=== PATIENT | female | born 1990 | race Caucasian/White ===

== ENCOUNTER 2025-05-18 12:48 | Emergency (ER) | payer BC, SELFPAY ==
--- OUTSIDE RECORDS SUMMARY | 2020-07-30 08:46 | XMS_ITS | Continuity of Care Document ---
Author Organization 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 Name Role Phone MD MEGAN Meyers, Nery Unavailable Unavaila ble Allergies, Adverse Reactions, Alerts Substance Reaction Status Criticality No Known Allergies Active No Inform ation Medications Medication Instructions Dosage Effective Dates (start - stop) Status Comments escitalopram 20 mg tablet take 1 tablet by oral route every day 20 MG - Active Flonase Allergy Relief 50 mcg/actuation nasal spray,suspension spray 1 - 2 spray by intranasal route every day in each nostril - Active Zyrtec 10 mg capsule 1 tab po daily - Active hydrocortisone 2.5 % topical cream apply by topical route 2 times every day a thin layer to the affected area(s) 0.00 - Active sumatriptan 25 mg tablet take 1 tablet by oral route after onset of migraine; may repeat after 2 hours if headache returns,not to exceed 200mg in 24hrs 25 MG - Active naproxen 500 mg tablet take 1 tablet by oral route 2 times every day with food as needed 500 MG - Active Flonase Allergy Relief 50 mcg/actuation nasal spray,suspension spray 1 - 2 spray by intranasal route every day in each nostril - No Longer Active Zyrtec 10 mg capsule 1 tab po daily - No Longer Active escitalopram 20 mg tablet take 1 tablet by oral route every day 20 MG - No Longer Active Procedures Procedure Date OV 25 MIN F OV 25 MIN F OV 25 MIN F OV 25 MIN F BLOOD COLLECTIO EKG OV 25 MIN F OV 25 MIN F OV 25 MIN F OV 25 MIN F SYST BP LT 130 MM HG DIAST BP 80-89 MM HG PREV VISIT, NEW, AGE 18-39 BLOOD COLLECTIO Advance Directives Directive Yes / No Effective Date File Name No Information Encounters Encounter Description Practice Location Reason(s) For Visit Diagnoses Date Provider Providers Copied on Encounter [facility], [address], [place], [place], [id number], [place] tel:[phone] [place] No Information 1 MD Nery Meyers. [address] [facility], [address], [address], [place]. [phone] OV 25 MIN F [facility], [address], [place], [place], [id number], [place] tel:[phone] [place] Follow Up of Anxiety (chief complaint) Anxiety and depressionDizzine ss and giddiness 1 MD Nery Meyers. [address] [facility], [address], [address], [place]. tel:[phone] OV 25 MIN F [facility], [address], [place], [place], [id number], [place] tel:[phone] [place] Follow Up of Anxiety (chief complaint) Anxiety and depressionDizzine ss and giddinessInsomnia due to mental condition 0 MD Nery Meyers. [address] [facility], [address], [place], [address], [place]. tel:[phone] OV 25 MIN F [facility], [address], [place], [place], [id number], [place] tel:[phone] [place] Follow Up of headache (chief complaint)F ollow Up of lab results (chief complaint) Anxiety and depressionHeadach e disorderInsomnia due to mental conditionMultiple allergies Mar- 0 MD Nery Meyers. [address] [facility], [address], [address], [place]. tel:[phone] OV 25 MIN F [facility], [address], [id number], [place] tel:[phone] [place] Allergies (chief complaint) Dizziness and giddinessHeadache disorderMultiple allergiesAllergic rhinitis, unspecified seasonality, unspecified trigger 0 MD Nery Meyers. [address] [facility], [address], [address], [place]. tel:[phone] OV 25 MIN F [facility], [address] [place], [id number], [place] tel:[phone] [place] Follow Up of Anxiety (chief complaint)F ollow Up of Lab results (chief complaint) Anxiety and depressionDizzine ss and giddinessHeadache disorderInsomnia due to mental condition 0 MD Nery Meyers. [address] [facility], [address], [address], [place]. tel:[phone] OV 25 MIN F [facility], [address], [place], [place], [id number], [place] tel:[phone] [place] Follow Up of Anxiety (chief complaint)F ollow Up of lab results (chief complaint) HIV antibody positiveAnxiety and depressionInsomni a due to mental conditionHeadache disorderMixed hyperlipidemia Feb- 0 MD Nery Meyers. [address] [facility], [facility] [address], [place], [address], [place]. tel:[phone] OV 25 MIN F [facility], [address], [place], [place], [id number], [place] tel:[phone] [place] Follow Up of Headache (chief complaint) Anxiety and depressionInsomni a due to mental conditionDizzines s and giddinessHeadache disorderIntractab le migraine without status migrainosus, unspecified migraine type 0 MD Nery Meyers. [address] [facility], [address], [place], [address], [place]. tel:[phone] OV 25 MIN F [facility], [address], [place], [place], [id number], [place] tel:[phone] [place] headache (chief complaint) Anxiety and depressionInsomni a due to mental conditionIntracta ble migraine without status migrainosus, unspecified migraine type 0 MD Nery Meyers. [address] [facility], [address], [place], [address], [place]. tel:[phone] PREV VISIT, NEW, AGE 18-39 [facility], [address], [place], [place], [id number], [place] tel:[phone] [place] Preventive exam (chief complaint)H eadache (chief complaint) Encntr for general adult medical exam w/o abnormal findingsEncounter for blood pressure examinationAnxiet y and depressionMajor depressive disorder, single episode, unspecifiedInsomn ia due to mental conditionBreast tenderness in femaleFamily history of breast cancer in mother 0 MD Nery Meyers. [address] [facility], [address], [place], [address], [place]. tel:[phone] Family History Family Member Type Diagnosis Age At Onset No Information Payers Payer name Insurance type Covered alliance party ID Authoriza tion(s) [employer] [place] [employer] [id number] Medi Mirza Wrap Payer [id number] Social History Type Description Quantity Date Captured Comments Sex Female Smoking Status No Information Sexual Orientation Don't Know Gender Identity Female Chief Complaint And Reason For Visit No Information Reason For Referral Reason For Referral No Information Plan Of Treatment Date Type Action Status Referral Ordered: referred to Psychiatry anxiety and depression ordered Referral Ordered: Ultrasound, breast, complete Bilateral ordered History Of Present Illness Encounter Date Complaint History Of Prese nt Illness Follow Up of Anxiety This is a f ollow up visit. There is improvement of initial symptoms. The patient presents with anxious/fearful thoughts, compulsive thoughts, depressed mood, difficulty concentrating, easily startled, excessive worry and fatigue but denies decreased need for sleep, difficulty falling asleep or thoughts of or suicide. The patient's risk factors include family history of anxiety, financial worries and relationship problems. The Follow Up of Anxiety is aggravated by conflict or stress and social interactions. The patient's relieving factors are medication. The Follow Up of Anxiety is associated with headache, irritability, nausea, sweating and weight gain. The patient denies any chronic pain, trembling, urinary frequency and vomiting. Additional information: Due to COVID 19 pt is informed and agreed to have telehealth visit. Follow Up of Anxiety This is a f ollow up visit. There is improvement of initial symptoms. The patient reports functioning as somewhat difficult. The patient presents with anxious/fearful thoughts, compulsive thoughts, difficulty staying asleep, easily startled and fatigue but denies decreased need for sleep, depressed mood, difficulty concentrating, difficulty falling asleep, excessive worry, increased energy, hallucinations,decreased libido or thoughts of or suicide. The patient's risk factors include family history of depression, family history of anxiety, financial worries, medication, relationship problems and social isolation. The Follow Up of Anxiety is aggravated by conflict or stress and traumatic memories. The patient's relieving factors are medication (Lexapro 20 mg, Xanax 0.5 mg prn), sunlight and warm weather.The patient's symptoms are not relieved by cessation of menses. The Follow Up of Anxiety is associated with headache, irritability, nausea, sweating and trembling. The patient denies any chronic pain, urinary frequency, vomiting and weight gain. Additional information: Due to COVID 19 pt is informed and agreed to have telehealth visit. Follow Up of headache The severi ty of the problem is mild. The problem has not changed. The symptoms are intermittent. Locations affected include entire head. Headache timing includes no pattern. Symptoms are associated with stress. Denies relieving factors. Associated symptoms include dizziness. Pertinent negatives include fever, nausea, personality changes, phonophobia, photophobia, vision loss left, vision loss right, visual aura, vertigo and vomiting. Additional information: Due to COVID 19 pt is informed and agreed to have telehealth visit. Follow Up of lab results all nor mal including allergy tests and SARS; all results were discussed with pt in details. Allergies The patient pres ents with itchy eyes, itchy throat, skin rash and sneezing. Symptoms are intermittent, moderate and unchanged. The symptoms are felt to be related to exposure to dust, exposure to mold, fall season, flower exposure, pet / animal exposure, season change, spring season and summer season. The allergic symptoms are worsened by allergens, dry air, dust, food, heat, pets / animals, pollution / exhaust, season change and weather. Denies relieving factors. The patient is also experiencing coryza, cough, headache, nasal congestion, nasal drainage, post nasal drainage, reddened eyes, sneezing and tearing. The patient denies chest tightness, dizziness, ear pain, globus sensation, nausea, reflux, sinus infections, sinus pain and urticaria. Follow Up of Lab results Western blot test came back NEGATIVE; all results were discussed with pt in details. Follow Up of Anxiety This is a f ollow up visit. There is continuation of initial symptoms. The patient reports functioning as somewhat difficult. The patient presents with anxious/fearful thoughts, compulsive thoughts, decreased need for sleep, depressed mood, difficulty falling asleep, difficulty staying asleep, easily startled, excessive worry and fatigue but denies difficulty concentrating, hallucinations,decreased libido, increased libido, loss of appetite, paranoia, racing thoughts, restlessness or thoughts of or suicide. The patient's risk factors include family history of depression, relationship problems and social isolation. The patient's risk factors exclude history of suicidal attempts. The Follow Up of Anxiety is aggravated by conflict or stress and social interactions. Interventions the patient has tried have not provided any relief. The Follow Up of Anxiety is associated with headache, irritability, nausea, sweating and trembling. The patient denies any chronic pain, urinary frequency, vomiting and weight gain. Additional information: Due to COVID 19 pt is informed and agreed to have telemedicine visit. Follow Up of lab results abnorma l lipid panel with high non HDL cholesterol to 142, high cholesterol to 214, REACTIVE HIV AG/AB TEST 4TH GEN; the rest of results is normal; all results were discussed with pt in details. Follow Up of Anxiety This is a f ollow up visit. There is continuation of initial symptoms. The patient reports functioning as somewhat difficult. The patient presents with anxious/fearful thoughts, compulsive thoughts, difficulty staying asleep, easily startled, excessive worry and fatigue but denies decreased need for sleep, depressed mood, difficulty concentrating, difficulty falling asleep, diminished interest or pleasure, feelings of guilt, feelings of invulnerability or thoughts of or suicide. The patient's risk factors include family history of anxiety, relationship problems and social isolation. The patient's risk factors exclude history of suicidal attempts. The Follow Up of Anxiety is aggravated by conflict or stress and social interactions. The patient's relieving factors are medication. The Follow Up of Anxiety is associated with headache, irritability, sweating, trembling and urinary frequency. The patient denies any vomiting and weight gain. Additional information: Due to COVID 19 pt is informed and agreed to have telemedicine visit. Follow Up of Headache The severi ty of the problem is mild. The problem has not changed. Locations affected include right frontal. Symptoms are associated with menses and stress. Aggravating factors include allergies, anxiety, bright lights, exercise, head position and certain foods. Denies relieving factors. Associated symptoms include dizziness, phonophobia and vertigo. Pertinent negatives include blurred vision, diplopia, fever, hemianopsia left, hemianopsia right, loss of consciousness, personality changes, photophobia, neck stiffness, vision loss right, visual aura and vomiting. Additional information: Due to COVID 19 pt is informed and agreed to have telemedicine visit,. headache The severity of the problem is moderate. The problem has not changed. The symptoms are recurring. Locations affected include entire head. Headache timing includes no pattern. Symptoms are associated with stress. Symptoms are not associated with menses, recent head trauma and recent MVA. Aggravating factors include noise. Symptoms are not aggravated by bright lights, exercise, head position and certain foods. Associated symptoms include nausea and personality changes. Pertinent negatives include blurred vision, diplopia, dizziness, fever, hemianopsia left, loss of consciousness, memory impairment, neck stiffness, vision loss right, visual aura, vertigo and vomiting. Additional information: due to COVID 19 pt is informed and agreed to have telemedicine visit. Headache Onset: 2 Months. Pain scale: 3/10. Headache timing includes no pattern. Symptoms are associated with stress. Symptoms are not associated with recent head trauma. Aggravating factors include anxiety and noise. Symptoms are relieved by analgesics and darkness. Associated symptoms include dizziness and nausea. Pertinent negatives include blurred vision and fever. Preventive exam The patient stat es she uses oral contraceptive for control. Last LMP was 01/11/2020. Her menses is regular with normal flow with a frequency of <28 days. Negative for dysmenorrhea and menorrhagia. Negative for: breast discharge. Positive for: breast lump(s), breast pain and breast self exam. Menopausal symptoms negative for: hot flashes and vaginal dryness. Menopausal symptoms positive for: insomnia and night sweats. Associated symptoms include anxiety, depression, difficulty falling sleep, nocturia and sleep disturbances. Pertinent negatives include abnormal bleeding (hematology), abnormal vaginal bleeding, decreased libido, dyspareunia, history of infertility, sexual dysfunction, urinary incontinence, urinary urgency and vaginal discharge. She takes calcium supplements. She reports taking Vitamin D. She does take multivitamins. Folic acid is taken. The patient does not use tobacco. She has not been exposed to passive smoke. Additional information: Malia Paul. Functional Status Date Functional Assessmen t No Information Instructions Date Instruction Additional Infor kendra get regular physical activities, get enough sleep, eat healthy foods Related to Anxiety and depression avoid driving, sudde n movements and use cane if needed Related to Dizziness and giddiness discuss diet, low sa lt, caffeine, alcohol Related to Dizziness and giddiness continue to take med s as directed, appropriate hydration Related to Dizziness and giddiness go to ER if unstable Related to Anxiety and depression take meds as directed by psych R elated to Anxiety and depression get regular physical activities, get enough sleep, eat healthy foods Related to Anxiety and depression do not drink alcohol or use drug s Related to Anxiety and depression take meds as directed Related to Anxiety and depression go to ER if unstable Related to Anxiety and depression avoid driving, sudde n movements and use cane if needed Related to Dizziness and giddiness discuss diet, low sa lt, caffeine, alcohol Related to Dizziness and giddiness continue to take med s as directed, appropriate hydration Related to Dizziness and giddiness get regular physical activities, get enough sleep, eat healthy foods Related to Anxiety and depression take meds as directed Related to Multiple allergies take meds as directed by psych R elated to Anxiety and depression do not drink alcohol or use drug s Related to Anxiety and depression take meds as directed Related to Headache disorder avoid triggers if possible Relat ed to Multiple allergies Instructions given f or sinus irrigation. Related to Allergic rhinitis, unspecified seasonality, unspecified trigger Allergy testing information give n. Related to Allergic rhinitis, unspecified seasonality, unspecified trigger Patient instructed o n use of saline sprays. Related to Allergic rhinitis, unspecified seasonality, unspecified trigger lab tests Related to Multi ple allergies continue to take med s as directed, appropriate hydration Related to Dizziness and giddiness discuss diet, low sa lt, caffeine, alcohol Related to Dizziness and giddiness avoid driving, sudde n movements and use cane if needed Related to Dizziness and giddiness get regular physical activities, get enough sleep, eat healthy foods Related to Anxiety and depression go to ER if unstable Related to Anxiety and depression take meds as directed Related to Anxiety and depression do not drink alcohol or use drug s Related to Anxiety and depression avoid driving, sudde n movements and use cane if needed Related to Dizziness and giddiness discuss diet, low sa lt, caffeine, alcohol Related to Dizziness and giddiness continue to take med s as directed, appropriate hydration Related to Dizziness and giddiness avoid driving, sudde n movements and use cane if needed Related to Dizziness and giddiness discuss diet, low sa lt, caffeine, alcohol Related to Dizziness and giddiness continue to take med s as directed, appropriate hydration Related to Dizziness and giddiness Increase activity. Related to Mi xed hyperlipidemia discuss low fat diet Related to Mixed hyperlipidemia take meds as directed Related to Anxiety and depression go to ER if unstable Related to Anxiety and depression get regular physical activities, get enough sleep, eat healthy foods Related to Anxiety and depression do not drink alcohol or use drug s Related to Anxiety and depression discuss diet, hygien e, hydration, safety Related to Headache disorder take meds as directed Related to Headache disorder stop OCPs Related to Intra ctable migraine without status migrainosus, unspecified migraine type meds as directed Related to Intr actable migraine without status migrainosus, unspecified migraine type continue to take med s as directed, appropriate hydration Related to Dizziness and giddiness discuss diet, low sa lt, caffeine, alcohol Related to Dizziness and giddiness take meds as directed by psych R elated to Anxiety and depression go to ER if unstable Related to Anxiety and depression get regular physical activities, get enough sleep, eat healthy foods Related to Anxiety and depression do not drink alcohol or use drug s Related to Anxiety and depression avoid driving, sudde n movements and use cane if needed Related to Dizziness and giddiness go to ER if unstable Related to Anxiety and depression take meds as directed Related to Anxiety and depression get regular physical activities, get enough sleep, eat healthy foods Related to Anxiety and depression do not drink alcohol or use drug s Related to Anxiety and depression discuss diet, hydrat ion, exercises as tolerated Related to Intractable migraine without status migrainosus, unspecified migraine type take meds as directed Related to Intractable migraine without status migrainosus, unspecified migraine type Increase activity. Related to En cntr for general adult medical exam w/o abnormal findings Perform monthly self breast examinations. Related to Encntr for general adult medical exam w/o abnormal findings discuss diet, hygien e, hydration, safe sex, condoms Related to Encntr for general adult medical exam w/o abnormal findings take meds as directed by psych R elated to Anxiety and depression go to ER if unstable Related to Anxiety and depression get regular physical activities, get enough sleep, eat healthy foods Related to Anxiety and depression do not drink alcohol or use drug s Related to Anxiety and depression Assessments Type Assessment Date No Information Patient Care Teams Name Effective Dates (start - stop) Status Members No Information
[2025-05-18 12:50] VITALS: BP 124/72; PULSE 82; RESP 18; TEMP 36.6; O2SAT 98; BMI 21.2
--- NOTE | 2025-05-18 12:50 | ED.HA ---
HPI - Headache General Chief Complaint: Headache Stated Complaint: migraine Time Seen by Provider: 05/18/25 13:31 Source: patient Mode of arrival: ambulatory Limitations: no limitations History of Present Illness ED Provider: Sepideh Lima APRN HPI Narrative: 35-year-old female with a history of migraines who is currently taking Topamax presents to the ER with complaints of constant headache for the last 3 weeks described as pressure which wraps around her head. There was no associated nausea, vomiting, vision changes, neck pain, neck stiffness, fevers, chills. Patient reports she has had migraines for over 10 years. She is currently followed by a headache Center in [facility]. She has tried multiple medication modalities for migraines which have not been helpful. In the last 2 weeks she has been taking Motrin and Tylenol also with no change in the pain. She does have a follow-up appointment with her headache center in September of 2025. Headache is not worsened with position changes. Related Data Previous Rx's ?Medication ?Instructions ?Recorded lknahvbtcp-ychxjfxrsrwwf-jicagezj 1 cap PO Q4H PRN pain #20 caps 05/18/25 50 mg-300 mg-40 mg capsule (Fioricet) Allergies Allergy/AdvReac Type Severity Reaction Status Date / Time No Known Allergies (No Known Allergy Verified 05/18/25 12:53 Allergies*) Review of Systems Review of Systems: Yes all other systems are reviewed and are negative Constitutional: Constitutional: Reports no additional constitutional complaints, Denies body ache(s), Denies chills, Denies fever(s), Reports headache(s) and Denies weakness Eyes: Eyes: Reports no additional eye complaints and Denies change in vision ENT: Reports system reviewed and no additional complaints, except as documented, Denies dizziness, Reports headache(s), Denies nasal congestion, Denies nasal discharge and Denies neck pain Cardiovascular: Cardiovascular: Reports no additional cardiovascular complaints, Denies chest pain, Denies leg edema and Denies dyspnea Respiratory: Respiratory: Reports no additional respiratory complaints, Denies cough and Denies dyspnea Gastrointestinal: Gastrointestinal: Reports no additional gastrointestinal complaints, Denies abdominal pain, Denies diarrhea, Denies nausea and Denies vomiting Genitourinary: Genitourinary: Reports no additional female genitourinary complaints and Denies urinary incontinence Musculoskeletal: Musculoskeletal: Reports no additional musculoskeletal complaints, Denies back pain, Denies arthralgias, Denies joint swelling, Denies neck pain, Denies numbness and Denies tingling Integumentary/Breasts: Skin/Breast: Reports system reviewed and no additional complaints, except as docu and Denies rash Neurologic: Reports system reviewed and no additional complaints, except as documented, Denies Abnormal speech present, Denies dizziness, Reports headache(s), Denies numbness, Denies tingling and Denies weakness PMF Past Medical History Attestation statement: The following information was validated with the patient. Source: old records reviewed and nursing notes reviewed Social History Social History Smoked in Last 30 Days: No Advance Directives: No Advance Directives Information Provided: Yes Do you have a plan to hurt others: No Plan Physical Exam Vital Signs: Vital Signs: Last Vital Signs Temp 97.9 F 05/18/25 15:19 Pulse 67 05/18/25 15:21 Resp 16 05/18/25 15:21 BP 106/67 05/18/25 15:21 Pulse Ox 99 05/18/25 15:21 O2 Del Method Room Air 05/18/25 15:21 BMI result Body Mass Index 21.2 Const: General: cooperative, healthy appearing, comfortable and no acute distress Orientation/consciousness: patient oriented x3 Limitations: no limitations HEENT: Head: Yes normal to inspection Ears: hearing grossly normal bilaterally and TM's normal bilaterally General nose exam: Normal external nose present Face and sinus: Yes normal facial exam Mouth: Normal oral and palatal mucosa present Throat: Yes posterior oropharynx normal, Yes tonsils normal and Yes uvula midline Eyes: General: appearance normal, both eyes and all related structures Pupils: Equal, round and reactive pupils present Neck: Neck: Yes normal visual inspection, Yes full ROM, Yes no lymphadenopathy and Yes no meningeal signs Chest: Chest palpation & inspection: normal inspection of the chest Resp: Effort & Inspection: normal respiratory effort Auscultation: clear to auscultation bilaterally Cardio: Rate: regular rate Rhythm: regular rhythm Peripheral pulses: Peripheral pulses 2+ throughout GI: Inspection: Yes normal to inspection Palpation (GI): Soft to palpation and nontender Auscultation: normal bowel sounds Back/Spine/Pelvis: Thoracic/Lumbar Spine: thoracic and lumbar spine normal to inspection Skin: General skin exam: no rashes or lesions noted Neuro: General: patient oriented x3, moves all extremities, no meningeal signs, no focal motor deficits and normal sensation to monofilament Cranial nerves: Yes CN's II-XII intact bilaterally, Yes Equal, round and reactive pupils present, Yes Bilaterally intact EOM present, Yes Nystagmus not present, Yes Normal facial strength present and Yes Midline tongue present Cognition (Neuro): normal cognition Speech: No Abnormal speech present Gait exam (Neuro): Normal gait present Motor exam (neuro): 5/5 motor strength present throughout Sensory Exam: Normal double simultaneous stimulation for sensation Extrem: General: Yes normal to inspection Course Course Course Narrative: This is a Rapid Medical Exam performed in triage by Dinora Hicks PA-C. Full HPI, ROS and PE to be performed by primary ED provider. 35 yo F presenting to the ED c/o intractable migraine x3 weeks. Has been taking Topamax, triptans, NSAIDs, Tylenol w/o relief. Denies taking anything today. Denies N/V. states this DEL REAL is typical for her but not going away PE: NAD, nontoxic appearing, no focal deficits Plan: Labs, Pain management Reevaluation(s) Reevaluation #1: Patient reports some mild improvement in her headache but not resolution. She called into the room because she wanted to go home and sleep. She is not interested in receiving any more IV medications or seeing in the emergency department to see if her headache resolved. She would like to go home and follow up with her outpatient prescribers. I did offer her a prescription for Fioricet which she would like to try. I reviewed worrisome signs and symptoms of when to return to the emergency room. Comfortable plan for discharge home. Medications Administered Discontinued Medications Generic Name Dose Route Start Last Admin Trade Name Freq PRN Reason Stop Dose Admin Diphenhydramine HCl 25 mg 05/18/25 13:44 05/18/25 14:00 Diphenhydramine Hcl 50 Mg/Ml Vial IVPUSH 05/18/25 13:45 25 mg ONCE ONE Administration Sodium Chloride 1,000 mls @ 999 mls/hr 05/18/25 13:44 05/18/25 15:08 Ns IV 05/18/25 14:44 Infused .Q1H1M STA Infusion Ketorolac Tromethamine 15 mg 05/18/25 13:44 05/18/25 14:00 Ketorolac Tromethamine 15 Mg/Ml Vial IVPUSH 05/18/25 13:45 15 mg ONCE ONE Administration Metoclopramide HCl 10 mg 05/18/25 13:44 05/18/25 14:00 Metoclopramide Hcl 10 Mg/2 Ml Vial IVPUSH 05/18/25 13:45 10 mg ONCE ONE Administration Medical Decision Making Medical Decision Making [facility] Narrative: 35-year-old female with a history of migraines who is currently taking Topamax presents to the ER with complaints of constant headache for the last 3 weeks described as pressure which wraps around her head. There was no associated nausea, vomiting, vision changes, neck pain, neck stiffness, fevers, chills. Patient reports she has had migraines for over 10 years. She is currently followed by a headache Center in [facility]. She has tried multiple medication modalities for migraines which have not been helpful. In the last 2 weeks she has been taking Motrin and Tylenol also with no change in the pain. She does have a follow-up appointment with her headache center in September of 2025. Headache is not worsened with position changes. Normal neuro exam with no focal deficits no headache red flag symptoms afebrile, no meningeal signs or lymphadenopathy will place IV and give IV fluids, Reglan, Benadryl and Toradol Differential Diagnosis Differential Diagnoses: The differential diagnosis associated with the presentation includes migraine low suspicion for pseudotumor cerebri, temporal arteritis, meningitis, encephalitis, ICH/SAH Admission/Observation Consideration of admission/observation: Escalation of care including admission/observation considered Lab Data [facility] Lab Attestation statement: I reviewed the patient's lab results. 05/18/25 13:03 05/18/25 13:03 Labs: Lab Results 05/18/25 05/18/25 Range/Units 13:03 14:04 WBC 6.3 (4.8-10.8) X10*3/uL RBC 4.54 (4.20-5.50) X10*6/uL Hgb 12.1 (12.0-16.0) g/dl Hct 37.6 (37.0-47.0) % MCV 82.8 (80.0-98.0) fL MCH 26.7 L (27.0-33.0) pg MCHC 32.2 (31.0-35.0) g/dl RDW 13.2 (11.0-16.0) % Plt Count 295 (160-400) X10*3/uL MPV 9.6 (9.4-12.3) fL Immature Gran % (Auto) 0.3 (0.0-0.4) % Neut % (Auto) 59.8 (45-73) % Lymph % (Auto) 30.1 (20-40) % Hanson % (Auto) 6.2 (2-11) % Eos % (Auto) 2.8 (0-4) % Baso % (Auto) 0.8 (0-2) % Lymph # (Auto) 1.9 (1.2-4.9) X10*3/uL Hanson # (Auto) 0.4 (0.1-1.2) X10*3/uL Eos # (Auto) 0.2 (0.0-0.4) X10*3/uL Baso # (Auto) 0.1 (0.0-0.2) X10*3/uL Abs Immat Gran (auto) 0.02 (0.00-0.03) X10*3/uL Absolute Neuts (auto) 3.8 (2.0-8.3) x10*3/uL Absolute Nucleated RBC 0.000 (0.0-0.012) X10*3/uL Nucleated RBC % (auto) 0.0 (0.0-0.2) /100WBC Sodium 139 (135-145) mmol/L Potassium 3.8 (3.3-5.1) mmol/L Chloride 110 H (96-108) mmol/L Carbon Dioxide 22 (22-29) mmol/L Anion Gap 11 L (12-20) BUN 14 (9-16) mg/dL Creatinine 0.75 (0.5-1.4) mg/dL Estim Creat Clear Calc 80.5 Estimated GFR > 60 Random Glucose 96 (60-115) mg/dL Calcium 8.7 (8.4-10.2) mg/dL Urine Test NEGATIVE (NEGATIVE) COVID-19 (ZEHRA) Negative (Negative) COVID-19 Clin Com See Note Influenza Type A (MUMTAZ) Negative (Negative) Influenza Type B (MUMTAZ) Negative (Negative) Influenza A & B Note See Note Discharge Plan Discharge Clinical Impression: Migraine Patient Disposition: Home, Self-Care Instructions: Migraine Headache (ED) Additional Instructions: We did offer you more medications but you wanted to go home and sleep. We are sending you home with p.rJavyn. Fioricet for home if needed Return to the emergency room for any worsening headache, fever, vomiting Follow-up with your outpatient provider Prescriptions: New rgbmfzfqja-nnljuzmyerljp-gpte [Fioricet] 50-300-40 mg capsule 1 cap PO Q4H PRN (Reason: pain) Qty: 20 0RF Referrals: Physician,None [Primary Care Provider, Medical] Interventions: ED Discharge Assessment Last Done: 05/18/25 15:19 Discharge Date/Time: 05/18/25 15:26 Print Language: Ukrainian
[2025-05-18 13:13] LABS: MANUAL DIFF FLAG NO
--- OUTSIDE RECORDS SUMMARY | 2025-05-18 13:13 | XMS_ITS | Clinical Summary ---
Author Organization [facility] Address [address] [place] [phone] Phone Care Team Providers Care Valet Cashier Name Role Phone Amrita Mi NP Unavailable Cesia Sheffield NP Primary Care Provider [phone] Medications FEROSUL 325 mg (65 mg iron) tablet Take 1 tablet by mouth daily. 05/14/2022 Active lamoTRIgine (LAMICTAL) 100 MG IMMEDIATE release tablet Take 1 tablet by mouth as directed. 05/17/2022 Active Family History Medical History Relation Comments Congenital heart disease Neg Hx Social History Tobacco Use Types Packs/Day Years Used Date Smoking Tobacco: Never Assessed Education Answer Date Recorded Are you interested in more education? Not on bel e 11/13/2022 Are you concerned about learning? Not on file 11/13/2022 No 11/13/2022 No 11/13/2022 Digital Access Answer Date Recorded No 12/12/2022 No 12/12/2022 Reliable internet access at home? Not on file 12/12/2022 Device with a working camera? Not on file Comments Unknown Sex and Gender Information Value Date Recorded Sex Assigned at Not on file Legal Sex Female 3:41 PM EDT Gender Identity Not on file Sexual Orientation Not on file Plan of Treatment Upcoming Encounters Date Type Department Care Team (Late st Contact Info) Description 10/08/2025 11:00 AM EDT Telemedicine [facility] [place] [address] [facility] [address], [address]th [address], [address] [place] [address] Sal Rios MD [address] [place] [phone] [email or web address] Due Date Last Done Comments Adult Td,Tdap Booster 1992 DEPRESSION SCREENING 2004 SMOKING Hx and SMOKELESS TOBACCO SCREENING 02/17/2005 HEPATITIS C SCREENING 02/17/2010 HIV ONE-TIME SCREENING (18-6 5 YEARS) 02/17/2010 PAP SMEAR 02/17/2013 INFLUENZA VACCINE (#1) 2025 1, 05/22/2020 COVID-19 VACCINE (2024-2 6 season) 2025 HEPATITIS A VACCINES Aged Out No long er eligible based on patient's age to complete this topic HIB VACCINES Aged Out No longer eligi ble based on patient's age to complete this topic MENINGOCOCCAL VACCINES (ACWY) Aged Out No longer eligible based on patient's age to complete this topic MENINGOCOCCAL VACCINES (B) Aged Out N o longer eligible based on patient's age to complete this topic PNEUMOCOCCAL VACCINES (0-49 years) Aged Out No longer eligible b ased on patient's age to complete this topic Medical Devices Not on file Insurance [facility] OUT [facility] PPO BLUE CROSS OUT OF STATE PPO BLUE CROSS OUT OF STATE PPO BLUE CROSS OUT OF STATE PPO BLUE CROSS OUT OF STATE PPO [facility] OUT OF [facility] PPO Care Teams Valet Cashier Relationship Specialty Start Date End Date Cesia Sheffield NP [address] [place] [address] PCP - General Nurse Practitioner 04/15/25 Amrita Mi NP [address] [place] [id number] [email or web address] Unknown Provider Specialty 07/24/22 Additional Source Comments The information contained in this document represents components of the legal health record. It is not the complete legal health record.[facility]
--- OUTSIDE RECORDS SUMMARY | 2025-05-18 13:13 | XMS_ITS | Patient Health Record ---
Author Organization [facility] Address [address] [place] [address] Care Team Providers Care Fan Blade Aligner Name Role Phone MirelaDorothyMaria Elena Primary Care Provider Allergies No Known Allergies Reason For Referral No Information Medications Medication SIG (Take, Route, Frequency, Duration) Notes Start Date End Date Status NAC 600 MG 1 capsule Orally Twi ce a day OCT NAC Not-Taking hydrOXYzine HCl 10 MG 1-2 tablet as need ed Orally once a day Not-Taking LaMICtal 100 MG 1 tablet Orally Once a day for 30 days Active LaMICtal 25 MG 1 tablet Orally Once a day for 30 days 04/15/2022 Active LaMICtal 25 MG 1 tablet with the 10 0mg tab Orally Once a day 06/24/2021 Not-Taking LaMICtal 25 MG 1 tablet Orally Once a day for 30 day(s) 03/24/2022 Not-Taking LaMICtal 100 MG 1 tablet Orally Once a day for 30 day(s) 05/17/2022 Active Wellbutrin SR 100 MG 1 tablet in the mor grace Orally Once a day Not-Taking Fish Oil 1000 MG 1 capsule Orally Onc e a day for 30 day(s) Not-Taking Problems Problem Type SNOMED Code ICD Code Onset Dates Problem Status W/U Status Risk Notes Problem Borderline personality disorder (F60.3) Active confirmed Problem 57275779 Mixed obsessional thoughts and acts (F42.2) Active confirmed Problem 86211990 Anxiety (F41.9) Active confirmed Problem 82378829 Severe episode of recurrent major depressive disorder, without psychotic features (F33.2) Active confirmed Problem [id number] Mild episode of recurrent major depressive disorder (F33.0) Active confirmed Problem 863838807 History of ETOH abuse (F10.11) Active confirmed Problem 20202245 Hair plucking in adult (F63.3) Active confirmed Plan Of Treatment No Information Insurance Providers Payer Name Payer Address Payer Phone Subscriber Number Group Number Insured Name Patient Relationship to Insured Coverage Start Date Coverage End Date [facility] [address] [place] [phone] [id number] Carmen Vogt Self - patient is the insured Medical (General) History Medical History History ICD Code esophagitis, hietal hernia, Sormach ulce r septo plasty deviated septum Surgical History Surgery Date(Month/Year) Deviated septum 2021
[2025-05-18 13:14] LABS: Hematocrit 37.6 % (37.0-47.0); Hemoglobin 12.1 g/dl (12.0-16.0); Imm Gran Abs Auto 0.02 X10*3/uL (0.00-0.03); Imm Gran Pct Auto 0.3 % (0.0-0.4); Lymphocytes Absolute Auto 1.9 X10*3/uL (1.2-4.9); Mean Corpuscular HGB Conc 32.2 g/dl (31.0-35.0); Mean Corpuscular Hemoglobin 26.7 pg (27.0-33.0); Mean Corpuscular Volume 82.8 fL (80.0-98.0); NRBC Abs Auto 0.000 X10*3/uL (0.0-0.012); NRBC Pct Auto 0.0 /100WBC (0.0-0.2); Platelet Count 295 X10*3/uL (160-400); Red Blood Count 4.54 X10*6/uL (4.20-5.50); White Blood Count 6.3 X10*3/uL (4.8-10.8)
[2025-05-18 13:28] LABS: Anion Gap 11 (12-20); Blood Urea Nitrogen 14 mg/dL (9-16); Calcium 8.7 mg/dL (8.4-10.2); Carbon Dioxide 22 mmol/L (22-29); Chloride 110 mmol/L (96-108); Creatinine Clr Calc Pharmacy 80.5; Estimated Glomerular Filt Rate > 60; Potassium 3.8 mmol/L (3.3-5.1); Sodium 139 mmol/L (135-145)
[2025-05-18 13:41] LABS: COVID-19 Test Negative (Negative); IDNOW Serial# 58CA691E
[2025-05-18 13:42] LABS: IDNOW Serial# 55D5AD1C; Influenza B2 Negative (Negative)
[2025-05-18 14:12] LABS: UPreg QC Valid YES
--- NOTE | 2025-05-18 14:43 | PC.NURSE ---
Pt resting in bed, states mild improvement to migraine. Pt sitting up in bed, eating chips and watching TV on iPad with headphones in ears.
[2025-05-18 15:19] VITALS: BP 124/72; PULSE 82; RESP 18; TEMP 36.6; O2SAT 98
[2025-05-18 15:21] VITALS: BP 106/67; PULSE 67; RESP 16; O2SAT 99
== END 2025-05-18 15:26 | disposition home or self-care (01) ==
PROVIDERS: Nurse Practitioner Family; Physician Assistant; Emergency Provider Emergency Medicine Emergency Medical Services
DX: G43.909 Migraine, unspecified, not intractable, without status migrainosus (principal); R11.0 Nausea; Z11.52 Encounter for screening for COVID-19; Z79.899 Other long term (current) drug therapy
CPT/HCPCS: 80048; 81025; 85025; 87502; 87635; 96361; 96374; 96375; 99284; J1200; J1885; J2765